=== PATIENT | male | born 1965 | race Caucasian/White ===

== ENCOUNTER 2020-03-06 11:10 | Inpatient (IN) | payer OTHER ==
[2020-03-06 14:11] VITALS: BMI 27.9
[2020-03-06] MEDS ORDERED: NICOTINE POLACRILEX 2 MG GUM BUC PRN (14:32)
[2020-03-06] MEDS ORDERED: MAG HYDROX/AL HYDROX/SIMETH 30 ML UNIT-DOSE CUP PO PRN (14:32)
[2020-03-06] MEDS ORDERED: ACETAMINOPHEN 325 MG TABLET (FP) PO PRN ×2 (14:32)
[2020-03-06] MEDS ORDERED: MAGNESIUM HYDROX 2400MG/30ML ORAL SUSPENSION 30 ML CUP PO PRN (14:32)
[2020-03-06] MEDS ORDERED: ONDANSETRON *ODT* 4 MG TABLET SL ONE (14:32)
[2020-03-06] MEDS ORDERED: BISMUTH SUBSALICYLATE 524 MG/30 ML UD PO PRN (14:32)
[2020-03-06] MEDS ORDERED: METHADONE HCL 10 MG TABLET (FOR DETOX USE ONLY) PO ONE (14:32)
[2020-03-06] MEDS ORDERED: MENTHOL/PHENOL 1 EACH UD MM PRN (14:32)
[2020-03-06] MEDS ORDERED: MAGNESIUM CITRATE 300 ML BOTTLE PO PRN (14:32)
[2020-03-06] MEDS ORDERED: ALBUTEROL SO4 HFA INHALER IH PRN (14:38)
[2020-03-06] MEDS: NICOTINE 21 MG/24 HOURS TOPICAL PATCH TD SCH (15:45)
[2020-03-06] MEDS: hydrOXYzine PAMOATE 25 MG CAPSULE (FP) PO SCH ×2 (18:35→22:14)
[2020-03-06] MEDS: THIAMINE HCL 100 MG TABLET (FP) PO SCH (22:14)
[2020-03-06] MEDS: MELATONIN 5 MG TABLETS PO SCH (22:14)
[2020-03-06] MEDS: cloNIDine HCL 0.1 MG TABLET PO PRN (22:14)
[2020-03-07] MEDS: hydrOXYzine PAMOATE 25 MG CAPSULE (FP) PO SCH ×5 (05:33→22:09)
[2020-03-07] MEDS ORDERED: METHADONE HCL 10 MG TABLET (FOR DETOX USE ONLY) ONE (09:15)
[2020-03-07] MEDS ORDERED: METHADONE HCL 5 MG TABLET (FOR DETOX USE ONLY) ONE (09:15)
[2020-03-07] MEDS ORDERED: METHADONE (DETOX) 20 MG, METHADONE (DETOX) 5 MG PO ONE (10:00)
[2020-03-07] MEDS: PRENATAL VITAMINS W/ FOLIC ACID TABLET (FP) PO SCH (10:33)
[2020-03-07] MEDS: NICOTINE 21 MG/24 HOURS TOPICAL PATCH TD SCH (10:44)
[2020-03-07 10:59] LABS: ALBUMIN 2.7 g/dl (3.4-5.0); BILIRUBIN,TOTAL 0.6 mg/dL (0.2-1); BLOOD UREA NITROGEN 15.4 mg/dL (7-18); POTASSIUM 3.9 mmol/L (3.5-5.1); TOT PROT 7.1 g/dl (6.4-8.2)
[2020-03-07 11:04] LABS: HEMATOCRIT 42.5 % (35.4-49); HEMOGLOBIN 14.1 GM/dL (11.7-16.9); MCHC 33.2 g/dl (32.0-35.9); MEAN CELL VOLUME 87.3 fl (80-96); MEAN PLT VOLUME 8.3 fl (7.5-11.1); PLATELET COUNT 262 K/MM3 (134-434); RBC 4.87 M/mm3 (4.00-5.60); RDW 14.9 % (11.9-15.9); WHITE BLOOD COUNT 6.9 K/mm3 (4.0-10.0)
[2020-03-07] MEDS: cloNIDine HCL 0.1 MG TABLET PO PRN (11:24)
[2020-03-07] MEDS: METHOCARBAMOL 500 MG TABLET PO PRN ×2 (11:24→19:14)
[2020-03-07] MEDS: IBUPROFEN 400 MG TABLET (FP) PO PRN ×2 (11:26→19:14)
[2020-03-07] MEDS: THIAMINE HCL 100 MG TABLET (FP) PO SCH (22:09)
[2020-03-07] MEDS: QUEtiapine FUMARATE 100 MG TABLET (FP) PO SCH (22:10)
[2020-03-07] MEDS: MELATONIN 5 MG TABLETS PO SCH (22:11)
[2020-03-08] MEDS: hydrOXYzine PAMOATE 25 MG CAPSULE (FP) PO SCH ×5 (02:00→22:12)
[2020-03-08] MEDS ORDERED: METHADONE HCL 10 MG TABLET (FOR DETOX USE ONLY) PO ONE ×2 (06:00→10:00)
[2020-03-08] MEDS: PRENATAL VITAMINS W/ FOLIC ACID TABLET (FP) PO SCH (10:57)
[2020-03-08] MEDS: NICOTINE 21 MG/24 HOURS TOPICAL PATCH TD SCH (10:57)
[2020-03-08] MEDS: IBUPROFEN 400 MG TABLET (FP) PO PRN ×2 (11:00→22:13)
[2020-03-08] MEDS: METHOCARBAMOL 500 MG TABLET PO PRN ×2 (12:38→22:13)
[2020-03-08] MEDS: MELATONIN 5 MG TABLETS PO SCH (22:10)
[2020-03-08] MEDS: QUEtiapine FUMARATE 100 MG TABLET (FP) PO SCH (22:12)
[2020-03-08] MEDS: THIAMINE HCL 100 MG TABLET (FP) PO SCH (22:14)
[2020-03-09] MEDS: hydrOXYzine PAMOATE 25 MG CAPSULE (FP) PO SCH ×4 (03:00→20:52)
[2020-03-09] MEDS ORDERED: METHADONE HCL 10 MG TABLET (FOR DETOX USE ONLY) ONE (04:45)
[2020-03-09] MEDS ORDERED: METHADONE HCL 5 MG TABLET (FOR DETOX USE ONLY) ONE (04:45)
[2020-03-09] MEDS ORDERED: METHADONE (DETOX) 10 MG, METHADONE (DETOX) 5 MG PO ONE ×2 (05:00→10:00)
[2020-03-09] MEDS: PRENATAL VITAMINS W/ FOLIC ACID TABLET (FP) PO SCH (10:13)
[2020-03-09] MEDS: NICOTINE 21 MG/24 HOURS TOPICAL PATCH TD SCH (10:14)
[2020-03-09] MEDS: METHOCARBAMOL 500 MG TABLET PO PRN (14:42)
[2020-03-09] MEDS: MELATONIN 5 MG TABLETS PO SCH (22:12)
[2020-03-09] MEDS: THIAMINE HCL 100 MG TABLET (FP) PO SCH (22:12)
[2020-03-09] MEDS: QUEtiapine FUMARATE 100 MG TABLET (FP) PO SCH (22:12)
[2020-03-10] MEDS: hydrOXYzine PAMOATE 25 MG CAPSULE (FP) PO SCH ×4 (03:09→20:55)
[2020-03-10] MEDS ORDERED: METHADONE HCL 10 MG TABLET (FOR DETOX USE ONLY) PO ONE ×2 (06:00→10:00)
[2020-03-10] MEDS: PRENATAL VITAMINS W/ FOLIC ACID TABLET (FP) PO SCH (11:12)
[2020-03-10] MEDS: NICOTINE 21 MG/24 HOURS TOPICAL PATCH TD SCH (11:12)
[2020-03-10] MEDS: MELATONIN 5 MG TABLETS PO SCH (21:59)
[2020-03-10] MEDS: THIAMINE HCL 100 MG TABLET (FP) PO SCH (21:59)
[2020-03-10] MEDS: QUEtiapine FUMARATE 100 MG TABLET (FP) PO SCH (21:59)
[2020-03-11] MEDS: hydrOXYzine PAMOATE 25 MG CAPSULE (FP) PO SCH ×2 (02:15→07:46)
[2020-03-11] MEDS ORDERED: METHADONE HCL 5 MG TABLET (FOR DETOX USE ONLY) PO ONE (06:00)
[2020-03-11 07:40] VITALS: BP 95/58; PULSE 61; TEMP 97.4
== END 2020-03-11 08:48 | disposition home or self-care (01) | DRG 773 ==
LOC: YASAS 11:10 → Y6N 14:53 → Y3N 03-10 15:35
PROVIDERS: ADMIT Allergy & Immunology; ATTEND Allergy & Immunology
PROC: HZ2ZZZZ Detoxification Services for Substance Abuse Treatment (ICD-10-PCS; principal; 2020-03-06)
DX: F11.23 Opioid dependence with withdrawal (principal); F17.210 Nicotine dependence, cigarettes, uncomplicated; F51.05 Insomnia due to other mental disorder; F41.9 Anxiety disorder, unspecified; F32.9 Major depressive disorder, single episode, unspecified; J44.9 Chronic obstructive pulmonary disease, unspecified; Z56.0 Unemployment, unspecified; Z59.0 Homelessness
CPT/HCPCS: 36415; 80053; 85027; 86780; 93005; 93010; J0735; U0003

== ENCOUNTER 2020-05-17 18:29 | Inpatient (IN) | payer OTHER ==
--- NOTE | 2020-05-17 19:38 | PDOC ---
History of Present Illness - General Chief Complaint: Edema Stated Complaint: EDEMA Time Seen by Provider: 05/17/20 19:17 - History of Present Illness Initial Comments: 55 YOM h/o heroin addiction presents with bilateral upper and lower limb edema of one day duration. Patient is a habitual heroin user who presented to [facility] this morning for detox. Upon arrival he was found to have swelling in upper and lower limbs. He was also short of breath. [facility] did not consider him medically fit for admission, he was sent here for subsequent evaluation. He mentions that he has a history of a heart condition for which he was treated with a "water pill" but is uncertain of any specific details. He denies CP, N/V/D, fever or chills. Constitutional: No Weight Change, No Fever, No Chills, No Night Sweats, No Fatigue, No Malaise ENT/Mouth: No Hearing Changes, No Ear Pain, No Nasal Congestion, No Sinus Pain, No Hoarseness, No sore throat, No Rhinorrhea, No Swallowing Difficulty Eyes: No Eye Pain, No Swelling, No Redness, No Foreign Body, No Discharge, No Vision Changes Cardiovascular: No Chest Pain, No SOB, No PND, No Dyspnea on Exertion, No Orthopnea, No Claudication, No Palpitations Respiratory: No Cough, No Sputum, No Wheezing, No Smoke Exposure Gastrointestinal: No Nausea, No Vomiting, No Diarrhea, No Constipation, No Pain, No Heartburn, No Anorexia, No Dysphagia, No Hematochezia, No Melena, No Flatulence, No Jaundice Genitourinary: No Dysmenorrhea, No DUB, No Dyspareunia, No Dysuria, No Urinary Frequency, No Hematuria, No Urinary Incontinence, No Urgency, No Flank Pain, No Urinary Flow Changes, No Hesitancy Musculoskeletal: No Arthralgias, No Myalgias, No Joint Swelling, No Joint Stiffness, No Back Pain, No Neck Pain, No Injury History Skin: No Skin Lesions, No Pruritis, No Hair Changes, No Breast/Skin Changes, No Nipple Discharge Neuro: No Weakness, No Numbness, No Paresthesias, No Loss of Consciousness, No Syncope, No Dizziness, No Headache, No Coordination Changes, No Recent Falls Psych: No Anxiety/Panic, No Depression, No Insomnia, No Personality Changes, No Delusions, No Rumination, No SI/HI/AH/VH, No Social Issues, No Memory Changes, No Violence/Abuse Hx., No Eating Concerns Heme/Lymph: No Bruising, No Bleeding, No Transfusions History, No Lymphadenopathy Endocrine: No Polyuria, No Polydipsia, No Temperature Intolerance Past History - Medical History Allergies/Adverse Reactions: Allergies Allergy/AdvReac Type Severity Reaction Status Date / Time No Known Allergies Allergy Verified 03/06/20 14:06 Home Medications: Ambulatory Orders Quetiapine Fumarate [Seroquel -] 100 mg PO HS 03/06/20 Albuterol Sulfate Inhaler - [Ventolin HFA Inhaler -] 2 puff IH PRN #1 inhaler 03/11/20 Anemia: No Asthma: No Cancer: No Cardiac Disorders: No CVA: No COPD: Yes (no med) CHF: No Dementia: No Diabetes: No GI Disorders: No Disorders: No HTN: No Hypercholesterolemia: No Liver Disease: No Seizures: No Thyroid Disease: No - Psycho-Social/Smoking History Smoking History: Unknown if ever smoked Have you smoked in the past 12 months: Yes Number of Cigarettes Smoked Daily: 10 Cigars Per Day: 0 'Breaking Loose' booklet given: 05/17/20 *Physical Exam - Vital Signs Last Vital Signs Temp Pulse Resp BP Pulse Ox 98 F 65 16 127/83 100 05/17/20 19:02 05/17/20 19:02 05/17/20 19:02 05/17/20 19:02 05/17/20 19:02 - Physical Exam General Appearance: Yes: Nourished, Appropriately Dressed, Mild Distress HEENT: positive: EOMI, JOSE, Normal ENT Inspection, Normal Voice Neck: positive: Trachea midline, Normal Thyroid Respiratory/Chest: positive: Lungs Clear, Normal Breath Sounds, Respiratory Distress Cardiovascular: positive: Regular Rhythm, Regular Rate, S1, S2, Edema Gastrointestinal/Abdominal: positive: Normal Bowel Sounds, Flat, Soft Musculoskeletal: positive: Normal Inspection Extremity: positive: Normal Capillary Refill, Pedal Edema, Swelling Integumentary: positive: Normal Color, Dry, Warm Neurologic: positive: counter weigher II-XII NML intact, Fully Oriented, Alert, Normal Mood/Affect, Normal Response, Motor Strength 5/5 ED Treatment Course - LABORATORY CBC & Chemistry Diagram: 05/17/20 21:00 05/17/20 21:00 Medical Decision Making - Medical Decision Making 55 YOM h/o heroin addiction presents with bilateral upper and lower limb edema of one day duration. Patient is a habitual heroin user who presented to [facility] this morning for detox. Upon arrival he was found to have swelling in upper and lower limbs. He was also short of breath. [facility] did not consider him medically fit for admission, he was sent here for subsequent evaluation. He mentions that he has a history of a heart condition for which he was treated with a "water pill" but is uncertain of specific details. He denies CP, N/V/D, fever or chills. Vitals on arrival wnl. Physical exam revealing bilateral upper and lower extremity edema. dx includes but is not limited to: CHF exacerbation, liver failure, COVID-19 infection, pulmonary hypertension. plan: CBC, CMP, coags, troponin, BNP, CXR, EKG reassess: EKG and labs wnl, CXR suggestive of pulmonary edema. Will admit patient for CHF exacerbation. dispo: admit to medicine. Discharge - Discharge Information Problems reviewed: Yes Clinical Impression/Diagnosis: Edema - Follow up/Referral - Patient Discharge Instructions - Post Discharge Activity
--- NOTE | 2020-05-17 19:46 | PDOC ---
Attending Attestation - Resident Resident Name: Adriel Ga - ED Attending Attestation I have performed the following: I have examined & evaluated the patient, The case was reviewed & discussed with the resident, I agree w/resident's findings & plan - HPI HPI: 05/17/20 21:39 see resident hpi - Physicial Exam PE: 05/17/20 21:40 see resident exam - Medical Decision Making 05/17/20 21:41 55-year-old male with history of polysubstance abuse namely heroin and alcohol complaining of swelling to the lower extremities as well as hands sent from [facility] rehab facility for further evaluation Chest x-ray suggests pulmonary congestion We will plan for admission to medical service for diuresis and further evaluation pending labs Discharge - Discharge Information Problems reviewed: Yes Clinical Impression/Diagnosis: Edema - Follow up/Referral - Patient Discharge Instructions - Post Discharge Activity
[2020-05-17] MEDS ORDERED: FUROSEMIDE 40 MG TABLET (FP) PO ONE (20:05)
[2020-05-17] MEDS ORDERED: chlordiazePOXIDE HCL 25 MG CAPSULE PO ONE (21:00)
[2020-05-17 21:25] LABS: BASO % 0.3 % (0-2.0); HEMATOCRIT 35.1 % (35.4-49); HEMOGLOBIN 11.8 GM/dL (11.7-16.9); LYMPH % 21.2 % (8-40); MCH 28.9 pg (25.7-33.7); MCHC 33.6 g/dl (32.0-35.9); MEAN CELL VOLUME 86.1 fl (80-96); MEAN PLT VOLUME 7.6 fl (7.5-11.1); MONO % 2.4 % (3.8-10.2); NEUT % 71.1 % (42.8-82.8); PLATELET COUNT 376 K/MM3 (134-434); RBC 4.08 M/mm3 (4.00-5.60); RDW 15.5 % (11.9-15.9); WHITE BLOOD COUNT 7.2 K/mm3 (4.0-10.0)
[2020-05-17 21:40] LABS: INR 1.11 (0.83-1.09); PROTHROMBIN TIME (PATIENT) 13.1 SEC (9.7-13.0)
[2020-05-17] MEDS ORDERED: chlordiazePOXIDE HCL 25 MG CAPSULE ONE (21:47)
[2020-05-17 21:57] LABS: ALBUMIN 2.3 g/dl (3.4-5.0); ALK PHOS 53 U/L (45-117); ANION GAP 6 MMOL/L (8-16); BILIRUBIN,TOTAL 0.2 mg/dL (0.2-1); BLOOD UREA NITROGEN 10.5 mg/dL (7-18); CALCIUM 8.5 mg/dL (8.5-10.1); CHLORIDE 104 mmol/L (98-107); CO2 29 mmol/L (21-32); GLUCOSE,RANDOM 98 mg/dL (74-106); N-TERMINAL BNP 224.6 pg/ml (5-125); POTASSIUM 4.4 mmol/L (3.5-5.1); SGOT/AST 20 U/L (15-37); SGPT/ALT 14 U/L (13-61); SODIUM 138 mmol/L (136-145); TOT PROT 7.3 g/dl (6.4-8.2)
--- NOTE | 2020-05-17 23:21 | PN ---
Teaching Attending Note Name of Resident: Ros Caro ATTENDING PHYSICIAN STATEMENT I saw and evaluated the patient. I reviewed the resident's note and discussed the case with the resident. I agree with the resident's findings and plan as documented. SUBJECTIVE: Patient is a 55 year old man with a PMH of COPD, Insomnia, Heroin abuse, Alcohol abuse, anxiety, Depression, ?CHF (was on diuretic) and Tobacco use who presents from [facility] with bilateral upper and lower limb edema of one day duration. Patient is a habitual heroin user who presented to [facility] this morning for detox. Upon arrival he was found to have swelling in upper and lower limbs with SOB. [facility] did not consider him medically fit for admission, and sent him to ER. He mentions that he has a history of a "heart condition" for which he was treated with a "water pill" but could not elaborate. 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 Patient denies chest pain, abdominal pain, headache, palpitations, dizziness, fever, chills, nausea, vomiting, diarrhea, constipation, dysuria, frequency, urgency, melena, hematochezia or hematuria. No sick contacts or recent travels. Family history is unremarkable. OBJECTIVE: Alert Vital Signs Period Temp Pulse Resp BP Sys/Yi Pulse Ox Last 24 Hr 98 F 65 16 127/83 100 HEENT: No Jaundice, eye redness or discharge, PERRLA, EOMI. Normocephalic, atraumatic. External ears are normal and hearing is grossly intact. No nasal discharge. Neck: Supple, nontender. No palpable adenopathy or thyromegaly. No JVD Chest: Good effort. Coarse crackles. Clear to percussion. Heart: Regular. No S3, rub or murmur Abdomen: Not distended, soft, nontender and no HSM. No rebound or guarding. Normal bowel sounds. Ext: Peripheral pulses intact. Anasarca - most marked in legs and hands. Skin: Warm and dry. No petechiae, rash or ecchymosis. Neuro: Alert. Oriented x3. CN 2-12 grossly intact. Sensation grossly intact in all four extremities and DTR are symmetric. Psych: Appropriate mood and affect. Good insight. Home Medications Medication Instructions Recorded Quetiapine Fumarate [Seroquel -] 100 mg PO HS 03/06/20 Albuterol Sulfate Inhaler - 2 puff IH PRN #1 inhaler 03/11/20 [Ventolin HFA Inhaler -] Abnormal Lab Results 05/17/20 05/17/20 05/17/20 21:00 21:00 21:00 Hct 35.1 L D Monocytes % 2.4 L Eosinophils % 5.0 H PT with INR 13.10 H INR 1.11 H Anion Gap 6 L B-Natriuretic Peptide 224.6 H Albumin 2.3 L Current Medications Generic Name Dose Route Start Last Admin Trade Name Pankaj PRN Reason Stop Dose Admin Furosemide 40 mg 05/18/20 10:00 Lasix Injection - IVPUSH DAILY [facility] Heparin Sodium (Porcine) 5,000 unit 05/18/20 06:00 Heparin - SQ TID YUDY ASSESSMENT AND PLAN: 1. CHF exacerbation/?Nephrotic syndrome/?Interstitial lung disease - May have CHF likely precipitated by nonadherence to CHF regimen and/or drug use. 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 CXR shows cardiomegaly with diffuse bilateral interstitial infiltrates - may have chronic interstitial lung disease caused by heroin and/or talc with which the heroin is cut. Oxygen saturation was 100 % on room air. EKG shows NSR at 75/minute and QTc [address]-T wave changes. Initial troponin is negative. Will admit to telemetry, get urinalysis, urine protein/creatinine ratio, lipid profile and kidney sonogram. Treat with IV Lasix to achieve adequate diuresis, get ECHO, restrict dietary salt intake, monitor renal function, monitor and replete electrolytes, get daily weight and consult Cardiology/Pulmonary. Will continue comprehensive care for all of patients comorbid conditions including Seroquel for depression. 2. Anemia Cause unclear. Will do basic anemia work up including serial stool guaiacs, reticulocyte count and iron studies. 3. Alcohol/Heroin abuse Will monitor closely for drug withdrawal, implement [facility] Librium alcohol withdrawal protocol and do neurochecks. Implement seizure, fall and aspiration precautions. Treat with IV Banana bag, thiamine and folic acid. Monitor and replete electrolytes (Ca,Mg,K,P). Counseled patient about abstaining from alcohol/illicit drugs. Will consult ehs specialist and refer to alcohol/drug detox upon discharge. 4. Hypoalbuminemia - Possibly due to combined effects of malnutrition and inflammation associated with comorbid conditions. Will ensure adequate dietary protein intake and also consult charter representative. Urinalysis pending. 5. Tobacco Use Counseled on risks associated with tobacco use. We will provide patient all the necessary assistance to facilitate smoking cessation and prescribe Nicotine patch. 6. DVT prophylaxis - Lovenox 40 mg SQ q 24 hours. 7. Advance directives - Full code
[2020-05-18] MEDS ORDERED: FUROSEMIDE 40 MG/4 ML INJECTABLE VIAL IVPUSH ONE (02:23)
[2020-05-18] MEDS ORDERED: FUROSEMIDE 40 MG/4 ML INJECTABLE VIAL ONE ×2 (02:50→10:01)
--- NOTE | 2020-05-18 03:42 | HP ---
CHIEF COMPLAINT: UE & LE edema PCP: none HISTORY OF PRESENT ILLNESS: Pt is a 55 yo M with PMH of COPD, insomnia, alcohol use disorder, heroine use disorder, depression, and questionable CHF hx arriving with diffuse UE & LE edema that had developed gradually over the last 2 weeks. Pt has been more SOB over the last 2 years but has not been SOB above his baseline over the last two years recently. He presented to [facility] this morning for detox. Upon arriving, found to have bilateral upper and lower limb edema; was considered not medically fit for admission to [facility]. Pt also reports orthopnea and having to sleep at an angle for unknown period of time. Reports a similar episode about 3 years ago for which he went to [facility]; pt reports that kidneys and cardiology worked up but is a poor historian regarding course; reports getting "water pill" for "possible heart condition" or "kidney condition." Pt reports generalized myalgias today. Pt denies chest pain, nausea, vomiting, constipation, diarrhea, fevers, or chills. Denies changes in urinary habits as well. No night sweats or recent weight loss. No tremors, auditory/visual/tactile hallucinations, or increased agitation. 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 Family hx - none Social History: Pt is a former construction project assistant; [facility] Smokin.5 ppd x 1 year Alcohol: 4-5 24 oz beers daily; last drink 2 days ago Drugs: Heroine 2 bundles daily - snorting/sniffing; not IV Allergies No Known Allergies Allergy (Verified 03/06/20 14:06) HOME MEDICATIONS: Home Medications Medication Instructions Recorded Quetiapine Fumarate [Seroquel -] 100 mg PO HS 03/06/20 Albuterol Sulfate Inhaler - 2 puff IH PRN #1 inhaler 03/11/20 [Ventolin HFA Inhaler -] REVIEW OF SYSTEMS as per HPI PHYSICAL EXAMINATION Vital Signs - 24 hr 05/17/20 19:02 Temperature 98 F Pulse Rate 65 Respiratory 16 Rate Blood Pressure 127/83 O2 Sat by Pulse 100 Oximetry (%) GENERAL: Awake, alert, and fully oriented, mildly anxious HEAD: Normal with no signs of trauma. EYES: Pupils equal, round and reactive to light, extraocular movements intact, sclera anicteric, conjunctiva clear. EARS, NOSE, THROAT: oropharynx clear without exudates. Moist mucous membranes. Mild tongue fasciculations appreciated. NECK: Normal range of motion, supple without lymphadenopathy. LUNGS: Crackles appreciated bilaterally from bases to midway through lung haddad. No wheezes. No accessory muscle use. HEART: Regular rate and rhythm, normal S1 and S2 without murmur, rub or gallop. ABDOMEN: Soft, nontender, not distended, normoactive bowel sounds. MUSCULOSKELETAL: Moving all extremities equally and spontaneously. UPPER EXTREMITIES: 2+ pulses, warm, well-perfused. 2+ pitting edema of dorsum bilateral hands; left index finger amputated at DIP LOWER EXTREMITIES: 2+ pulses, warm, well-perfused. 2+ to 3+ pitting edema below the knee. NEUROLOGICAL: Cranial nerves II-XII intact. Normal speech. Normal gait. PSYCHIATRIC: Cooperative. Good eye contact. Appropriate mood and affect. SKIN: Warm, dry, normal turgor, no rashes or lesions noted, normal capillary refill. Laboratory Results - last 24 hr 05/17/20 05/17/20 05/17/20 21:00 21:00 21:00 WBC 7.2 RBC 4.08 Hgb 11.8 Hct 35.1 L D MCV 86.1 MCH 28.9 MCHC 33.6 RDW 15.5 Plt Count 376 D MPV 7.6 Absolute Neuts (auto) 5.1 Neutrophils % 71.1 Lymphocytes % 21.2 Monocytes % 2.4 L Eosinophils % 5.0 H Basophils % 0.3 Nucleated RBC % 0 PT with INR 13.10 H INR 1.11 H PTT (Actin FS) 32.0 Sodium 138 Potassium 4.4 Chloride 104 Carbon Dioxide 29 Anion Gap 6 L BUN 10.5 Creatinine 1.0 Est GFR (CKD-EPI)AfAm 97.77 Est GFR (CKD-EPI)NonAf 84.35 Random Glucose 98 Calcium 8.5 Total Bilirubin 0.2 AST 20 ALT 14 Alkaline Phosphatase 53 Creatine Kinase 115 Troponin I < 0.02 B-Natriuretic Peptide 224.6 H Total Protein 7.3 Albumin 2.3 L Alcohol, Quantitative 05/17/20 21:00 WBC RBC Hgb Hct MCV MCH MCHC RDW Plt Count MPV Absolute Neuts (auto) Neutrophils % Lymphocytes % Monocytes % Eosinophils % Basophils % Nucleated RBC % PT with INR INR PTT (Actin FS) Sodium Potassium Chloride Carbon Dioxide Anion Gap BUN Creatinine Est GFR (CKD-EPI)AfAm Est GFR (CKD-EPI)NonAf Random Glucose Calcium Total Bilirubin AST ALT Alkaline Phosphatase Creatine Kinase Troponin I B-Natriuretic Peptide Total Protein Albumin Alcohol, Quantitative < 3 ASSESSMENT/PLAN: Pt is a 55 yo M with PMH of COPD, insomnia, alcohol use disorder, heroine use disorder, depression, and questionable CHF hx arriving with diffuse UE & LE edema x 2 weeks. Pt being admitted for evaluation and treatment of possible nephrotic syndrome vs CHF exacerbation. #Upper + Lower Extremity Edema etiology unknown (Heroin induced nephrotic syndrome vs CHF exacerbation) BNP mildly elevated; no previous ECHO in chart - f/u UA; urine protein/creatinine - f/u lipid profle - renal sonogram - monitor renal function - consider nephro consult based on worup - cardiology consulted; can consider ECHO as per cardiology discretion; appreciate recs - Lasix IV 40 daily - Strict Is/Os - Daily weights #Possible Interstitial Lung Disease CXR shows cardiomegaly with diffuse bilateral interstitial infiltrates Chronic interstitial lung disease caused by heroin and/or talc with which the heroin is cut saturating 100% on RA - Pulm consulted; appreciate recs #Anemia (Hct dropped to 35.1; Hb stable) no recent hx of bleeding, per pt - iron studies ordered; reticulocytes; stool for occult blood #Alcohol Abuse/Heroin abuse CIWA 2; COWS 5 - no in acute alcohol withdrawal - can give librium if worsening CIWA - retail account specialist consulted #Hypoalbuminemia (Nephrotic syndrome vs malnutrition) - f/u UA - trouble clerk consulted #Nicotine Dependence - nicotine patch #DVT PPx heparin 5000 sq tid for now d/t concern of renal function; can switch to lovenox per day team discretion #FEN - F - no IVF for now - E - monitor; replete lytes prn - N - sodium restricted diet #Dispo - admit to med-surg Full code Family Medical History Family History: As Documented Visit type - Emergency Visit Emergency Visit: Yes ED Registration Date: 05/17/20 Care time: The patient presented to the Emergency Department on the above date and was hospitalized for further evaluation of their emergent condition. - New Patient This patient is new to me today: Yes Date on this admission: 05/18/20 - Critical Care Critical Care patient: No ATTENDING PHYSICIAN STATEMENT I saw and evaluated the patient. I reviewed the resident's note and discussed the case with the resident. I agree with the resident's findings and plan as documented. SUBJECTIVE: OBJECTIVE: ASSESSMENT AND PLAN:
[2020-05-18] MEDS ORDERED: HEPARIN NA (PORCINE) 5,000 UNITS/ML 1ML VIAL ONE (05:58)
[2020-05-18] MEDS ORDERED: HEPARIN NA (PORCINE) 5,000 UNITS/ML 1ML VIAL SQ SCH (06:00)
--- NOTE | 2020-05-18 09:08 | EKG ---
Test Reason : Blood Pressure : / mmHG Vent. Rate : 075 BPM Atrial Rate : 075 BPM P-R Int : 150 ms QRS Dur : 086 ms QT Int : 380 ms P-R-T Axes : -05 -15 034 degrees QTc Int : 424 ms NORMAL SINUS RHYTHM NORMAL ECG WHEN COMPARED WITH ECG OF 06-MAR-2020 13:21, NO SIGNIFICANT CHANGE WAS FOUND Confirmed by Jamie Brooks MD ([id number]) on 05/18/2020 9:08:05 AM Referred By: Confirmed By:Jamie Brooks MD
[2020-05-18 09:29] LABS: PH,URINE 7.5 (5.0-8.0); URINE APPEARANCE CLEAR; URINE BILIRUBIN NEGATIVE (NEGATIVE); URINE COLOR YELLOW; URINE GLUCOSE (UA) NEGATIVE (NEGATIVE); URINE KETONE NEGATIVE (NEGATIVE); URINE LEUK ESTERASE NEGATIVE (NEGATIVE); URINE NITRITE NEGATIVE (NEGATIVE); URINE PROTEIN NEGATIVE (NEGATIVE); URINE UROBILINOGEN 0.2 mg/dL (0.2-1.0)
[2020-05-18] MEDS ORDERED: ENOXAPARIN NA (PORCINE) 40 MG/0.4 ML DISP.SYRIN SQ SCH (10:00)
[2020-05-18] MEDS ORDERED: METHADONE HCL 5 MG TABLET PO ONE (10:25)
[2020-05-18] MEDS ORDERED: LOPERAMIDE HCL 2 MG CAPSULE PO PRN (10:27)
--- NOTE | 2020-05-18 10:34 | CON.CARD ---
Consult Consult Specialty:: Cardiology Referred by:: Hospitalist Reason for Consultation:: Cardiac evaluation - History of Present Illness Chief Complaint: Shortness of breath and LE edema History of Present Illness: Patient is a 55 year old male with underlying history of COPD, substance abuse with ETOH and Heroine who presented to ED with LE edema and shortness of breath. He went for Detox at [facility] but due to above issues, he was sent to ED for further evaluation. He states that he is followed at [facility] and takes diuretic. He reports generalized muscle aches. He denies chest pain or palpitations. He denies nausea, vomiting, diarrhea or abdominal pain. He denies headache or lightheadedness. No fever or chills. - History Source History Provided By: Patient, Medical Record Limitations to Obtaining History: Poor Historian - Past Medical History Cardio/Vascular: Yes: CHF Pulmonary: Yes: COPD Psych: Yes: Anxiety, Depression (insomnia) - Past Surgical History Past Surgical History: Yes: None - Alcohol/Substance Use Hx Alcohol Use: Yes History of Substance Use: reports: Heroin - Smoking History Smoking history: Current every day smoker Have you smoked in the past 12 months: Yes Aproximately how many cigarettes per day: 10 Home Medications - Allergies Allergies/Adverse Reactions: Allergies Allergy/AdvReac Type Severity Reaction Status Date / Time No Known Allergies Allergy Verified 05/18/20 08:20 - Home Medications Home Medications: Ambulatory Orders Quetiapine Fumarate [Seroquel -] 100 mg PO HS 03/06/20 Albuterol Sulfate Inhaler - [Ventolin HFA Inhaler -] 2 puff IH PRN #1 inhaler 03/11/20 Family Medical History Family History: Denies Review of Systems - Review of Systems Constitutional: reports: Weakness. denies: Chills, Fever Cardiovascular: reports: Shortness of Breath. denies: Chest Pain, Palpitations Respiratory: reports: SOB. denies: Cough, Hemoptysis, Orthopnea, PND, Wheezing Gastrointestinal: denies: Abdominal Pain, Constipation, Diarrhea, Melena, Nausea, Rectal Bleeding, Vomiting Genitourinary: denies: Dysuria, Hematuria Neurological: denies: Dizziness, Headache, Seizure, Syncope Vital Signs: Vital Signs Temperature 97.4 F L 05/18/20 10:06 Pulse Rate 82 05/18/20 10:06 Respiratory Rate 18 05/18/20 10:06 Blood Pressure 114/64 05/18/20 10:06 O2 Sat by Pulse Oximetry (%) 98 05/18/20 10:06 Neck: Yes: Supple Respiratory: Yes: Rales Gastrointestinal: Yes: Normal Bowel Sounds, Soft. No: Tenderness Cardiovascular: Yes: Regular Rate and Rhythm JVD: No PMI: Non-Displaced Heart Sounds: Yes: S1, S2 Edema: Yes Edema: LLE: 1+, RLE: 1+ - Other Data Labs, Other Data: CBC, BMP 05/17/20 21:00 05/17/20 21:00 INR, PTT INR 1.11 (0.83-1.09) H 05/17/20 21:00 Troponin, BNP 05/17/20 21:00 Troponin I < 0.02 B-Natriuretic Peptide 224.6 H Laboratory Results - last 24 hr 05/17/20 05/17/20 05/17/20 21:00 21:00 21:00 WBC 7.2 RBC 4.08 Hgb 11.8 Hct 35.1 L D MCV 86.1 MCH 28.9 MCHC 33.6 RDW 15.5 Plt Count 376 D MPV 7.6 Absolute Neuts (auto) 5.1 Neutrophils % 71.1 Lymphocytes % 21.2 Monocytes % 2.4 L Eosinophils % 5.0 H Basophils % 0.3 Nucleated RBC % 0 PT with INR 13.10 H INR 1.11 H PTT (Actin FS) 32.0 Sodium 138 Potassium 4.4 Chloride 104 Carbon Dioxide 29 Anion Gap 6 L BUN 10.5 Creatinine 1.0 Est GFR (CKD-EPI)AfAm 97.77 Est GFR (CKD-EPI)NonAf 84.35 Random Glucose 98 Calcium 8.5 Total Bilirubin 0.2 AST 20 ALT 14 Alkaline Phosphatase 53 Creatine Kinase 115 Troponin I < 0.02 B-Natriuretic Peptide 224.6 H Total Protein 7.3 Albumin 2.3 L Urine Color Urine Appearance Urine pH Ur Specific [place] Urine Protein Urine Glucose (UA) Urine Ketones Urine Blood Urine Nitrite Urine Bilirubin Urine Urobilinogen Ur Leukocyte Esterase Alcohol, Quantitative Normal sinus rhythm with normal ECG Echo: Pending Imaging - Results Chest X-ray: Report Reviewed (Diffuse bilateral infiltrates) EKG: Report Reviewed Problem List - Problems (1) Pedal edema Code(s): R60.0 - LOCALIZED EDEMA (2) CHF (congestive heart failure) Code(s): I50.9 - HEART FAILURE, UNSPECIFIED (3) Alcohol dependence with withdrawal, uncomplicated Code(s): F10.230 - ALCOHOL DEPENDENCE WITH WITHDRAWAL, UNCOMPLICATED (4) Edema Code(s): R60.9 - EDEMA, UNSPECIFIED (5) Opioid dependence with withdrawal Code(s): F11.23 - OPIOID DEPENDENCE WITH WITHDRAWAL (6) COPD (chronic obstructive pulmonary disease) Code(s): J44.9 - CHRONIC OBSTRUCTIVE PULMONARY DISEASE, UNSPECIFIED (7) Shortness of breath Code(s): R06.02 - SHORTNESS OF BREATH Assessment/Plan 1. Clinical presentation suggests CHF, acute on chronic LV systolic vs diastolic or combined heart failure 2. Substance abuse with ETOH and Heroine 3. COPD PLAN: 1. Echocardiography to assess LV/RV and valvular function 2. Diuretics with Lasix 40 mg IV QD and monitor I/Os, renal function and electrolytes 3. Detox Further plans are to follow Inocencio Smyth MD
[2020-05-18] MEDS: FUROSEMIDE 40 MG/4 ML INJECTABLE VIAL IVPUSH SCH (10:36)
[2020-05-18] MEDS: NICOTINE 14 MG/24 HOURS TOPICAL PATCH TD SCH (10:36)
[2020-05-18] MEDS ORDERED: METHADONE HCL 5 MG TABLET ONE (11:07)
[2020-05-18] MEDS ORDERED: ENOXAPARIN NA (PORCINE) 40 MG/0.4 ML DISP.SYRIN SQ ONE (13:29)
[2020-05-18] MEDS: ENOXAPARIN NA (PORCINE) 40 MG/0.4 ML DISP.SYRIN SQ SCH (13:32)
--- NOTE | 2020-05-18 13:40 | CON.PULM ---
Consult Consult Specialty:: PULM/CCM Referred by:: Hospitalist Reason for Consultation:: SOB - History of Present Illness Chief Complaint: SOB History of Present Illness: 55 M, COPD due to smoking history, insomnia, alcohol abuser, heroine abuse, depression, and possible history of CHF. Admitted via the ER due to bilateral LE edema and SOB that has progressed over the past 2 weeks. He denies exposure to COVID19. Denies fever or chills. No hemoptysis or night sweats. He reports previous cardiac and kidney evaluations in [facility] but details are not clear. CXR: Bilateral diffuse congestive changes : No previous imaging available for comparison. - History Source History Provided By: Patient Limitations to Obtaining History: Poor Historian - Past Medical History Cardio/Vascular: Yes: CHF Pulmonary: Yes: Bronchitis, COPD, Pneumonia. No: Asthma, Cancer, O2 Dependent, Previously Intubated, Pulmonary Embolus, Pulmonary Fibrosis, Sleep Apnea Psych: Yes: Anxiety, Depression (insomnia) - Past Surgical History Past Surgical History: Yes: None - Alcohol/Substance Use Hx Alcohol Use: Yes History of Substance Use: reports: Heroin - Smoking History Smoking history: Current every day smoker Have you smoked in the past 12 months: Yes Aproximately how many cigarettes per day: 10 Home Medications - Allergies Allergies/Adverse Reactions: Allergies Allergy/AdvReac Type Severity Reaction Status Date / Time No Known Allergies Allergy Verified 05/18/20 08:20 - Home Medications Home Medications: Ambulatory Orders Quetiapine Fumarate [Seroquel -] 100 mg PO HS 03/06/20 Albuterol Sulfate Inhaler - [Ventolin HFA Inhaler -] 2 puff IH PRN #1 inhaler 03/11/20 Family Medical History Family History: Denies Review of Systems - Review of Systems Constitutional: reports: Malaise. denies: Chills, Fever, Night Sweats, Unintentional Wgt. Loss Eyes: reports: No Symptoms HENT: reports: No Symptoms Neck: reports: No Symptoms Cardiovascular: reports: Edema, Shortness of Breath. denies: Chest Pain, Palpitations Respiratory: reports: Cough, Orthopnea, PND, SOB, SOB on Exertion. denies: Hemoptysis, Snoring, Wheezing Gastrointestinal: reports: No Symptoms Genitourinary: reports: No Symptoms Breasts: reports: No Symptoms Reported Musculoskeletal: reports: Back Pain Integumentary: reports: Change in Color Neurological: reports: No Symptoms Endocrine: reports: No Symptoms Hematology/Lymphatic: reports: No Symptoms Psychiatric: reports: Altered Sleep Pattern, Depression. denies: Hallucinations Physical Exam Vital Sings: Vital Signs Temperature 97.4 F L 05/18/20 10:06 Pulse Rate 82 05/18/20 10:06 Respiratory Rate 18 05/18/20 12:48 Blood Pressure 114/64 05/18/20 10:06 O2 Sat by Pulse Oximetry (%) 98 05/18/20 12:48 Constitutional: Yes: No Distress, Calm Eyes: Yes: Conjunctiva Clear, EOM Intact HENT: Yes: Atraumatic, Normocephalic Neck: Yes: Supple, Trachea Midline Cardiovascular: Yes: Regular Rate and Rhythm Respiratory: Yes: Diminished, Rales, Rhonchi, SOB, SOB on Exertion. No: Accessory Muscle Use, Stridor, Tachypnea, Wheezes ...Inspection: Yes: WNL ...Clubbing: No Gastrointestinal: Yes: Normal Bowel Sounds, Soft Renal/: Yes: WNL Breast(s): Yes: Nipple Inversion Musculoskeletal: Yes: WNL Extremities: Yes: WNL Edema: Yes Peripheral Pulses WNL: Yes Integumentary: Yes: WNL Neurological: Yes: WNL, Alert, Oriented ...Motor Strength: WNL Psychiatric: Yes: WNL, Alert, Oriented Labs: CBC, BMP 05/17/20 21:00 05/17/20 21:00 Imaging - Results Chest X-ray: Report Reviewed, Image Reviewed Problem List - Problems (1) Alcohol dependence with withdrawal, uncomplicated Code(s): F10.230 - ALCOHOL DEPENDENCE WITH WITHDRAWAL, UNCOMPLICATED (2) CHF (congestive heart failure) Code(s): I50.9 - HEART FAILURE, UNSPECIFIED (3) Edema Code(s): R60.9 - EDEMA, UNSPECIFIED (4) Pedal edema Code(s): R60.0 - LOCALIZED EDEMA (5) Shortness of breath Code(s): R06.02 - SHORTNESS OF BREATH (6) Insomnia secondary to depression with anxiety Code(s): F51.05 - INSOMNIA DUE TO OTHER MENTAL DISORDER; F41.8 - OTHER SPECIFIED ANXIETY DISORDERS (7) COPD (chronic obstructive pulmonary disease) Code(s): J44.9 - CHRONIC OBSTRUCTIVE PULMONARY DISEASE, UNSPECIFIED (8) Insomnia Code(s): G47.00 - INSOMNIA, UNSPECIFIED (9) Nicotine dependence Code(s): F17.200 - NICOTINE DEPENDENCE, UNSPECIFIED, UNCOMPLICATED Assessment/Plan PLAN: Lasix Daily weights ECHO Follow I & O COVID19 testing No smoking or illicit substance use was discussed Outpatient PFTs Sleep screen Would confirm HIV & Hepatitis status Will follow Thank you. Dr Dacosta SILVIO Screen - SILVIO History Previously diagnosed with Sleep Apnea: No If Yes, currently using CPAP to treat your SILVIO: No - SNORING Do you snore loudly (enough to be heard thru closed doors)?: No - TIRED Do you often feel tired, fatigued, or sleepy during daytime?: Yes - OBSERVED Has anyone observed you stop breathing during your sleep?: No - BLOOD PRESSURE Do you have or are being treated for high blood pressure?: Yes - BMI Answer Y if weight exceeds amount listed for your height: No .: HEIGHT & WEIGHT (lbs): 4'10" 167lbs; 4'" 175 lbs; 5'0" 179lbs;. 5'1" 185lbs; 5'2" 191lbs; 5'3" 197lbs;. 5'4" 204lbs; 5'5" 210lbs; 5'6" 216lbs;. 5'7" 223lbs; 5'8" 230lbs; 5'9" 237lbs;. 5'10" 2 43lbs; 5'11" 250lbs; 6' 258lbs;. 6'1" 265lbs; 6'2" 272lbs; 6'3" 279lbs;. 6'4" 287lbs; 6'5" 295lbs - AGE Is your age over 50 yrs old?: Yes - NECK CIRCUMFERENCE Neck Circumference 40cm: No - GENDER Male: Yes - SCORE Total Score: 4 Score Interpretation: Intermediate Risk of SILVIO .: Interpretation: Score 0-2: Low Risk SILVIO. Score 3-4: Intermediate Risk SILVIO. Score 5-8: High Risk SILVIO
--- NOTE | 2020-05-18 15:58 | PN ---
Teaching Attending Note Name of Resident: Vickey Atkinson ATTENDING PHYSICIAN STATEMENT I saw and evaluated the patient. I reviewed the resident's note and discussed the case with the resident. I agree with the resident's findings and plan as documented. SUBJECTIVE: Patient reports that he went to [facility] to get help for her heroin withdrawal He states he does not want suboxone, and would like to detox to methadone OBJECTIVE: Vital Signs Period Temp Pulse Resp BP Sys/Yi Pulse Ox Last 24 Hr 97.4 F-98.6 F 65-83 16-19 105-127/64-83 98-100 As per resident note ASSESSMENT AND PLAN: 55 y/o M with pmh as noted Substance abuse hx who presents from detox with lower extremity edema. LE Edema: functional vs. renal etiology vs. cardiac Await 2D echo Less likely renal etiology given that patient edema is isolated to b/l LE Can be 2/2 underlying vascular disease given pulmonary and renal findings, however renal findings based on UA not suggesting Nephritic syndrome Pulmonary infiltrates on CXR Await Pulm recs Can be 2/2 substance abuse leading to fibrosis vs. underlying vascular disorder. outpatient workup with PFTs Check HIV Rest of plan as noted
--- NOTE | 2020-05-18 17:23 | PN ---
Physical Exam: SUBJECTIVE: Patient seen and examined at bedside. Patient appears agitated during interview. Patient endorses swelling of his upper extremity has gotten better. OBJECTIVE: Vital Signs Period Temp Pulse Resp BP Sys/Yi Pulse Ox Last 24 Hr 97.4 F-99.4 F 65-83 16-19 105-127/64-83 96-100 GENERAL: The patient is awake, alert, and fully oriented, in no acute distress. LUNGS: CRACKLES HEART BILATERAL BASES HEART: Regular rate and rhythm, S1, S2 without murmur, rub or gallop. ABDOMEN: Soft, nontender, nondistended, normoactive bowel sounds, no guarding, no rebound, no hepatosplenomegaly, no masses. EXTREMITIES: 2+ pulses, warm, well-perfused, 3+ EDEMA BILATERALLY TO MID TIBIA Laboratory Results - last 24 hr 05/17/20 05/17/20 05/17/20 21:00 21:00 21:00 WBC 7.2 RBC 4.08 Hgb 11.8 Hct 35.1 L D MCV 86.1 MCH 28.9 MCHC 33.6 RDW 15.5 Plt Count 376 D MPV 7.6 Absolute Neuts (auto) 5.1 Neutrophils % 71.1 Lymphocytes % 21.2 Monocytes % 2.4 L Eosinophils % 5.0 H Basophils % 0.3 Nucleated RBC % 0 PT with INR 13.10 H INR 1.11 H PTT (Actin FS) 32.0 Sodium 138 Potassium 4.4 Chloride 104 Carbon Dioxide 29 Anion Gap 6 L BUN 10.5 Creatinine 1.0 Est GFR (CKD-EPI)AfAm 97.77 Est GFR (CKD-EPI)NonAf 84.35 Random Glucose 98 Calcium 8.5 Total Bilirubin 0.2 AST 20 ALT 14 Alkaline Phosphatase 53 Creatine Kinase 115 Troponin I < 0.02 B-Natriuretic Peptide 224.6 H Total Protein 7.3 Albumin 2.3 L Urine Color Urine Appearance Urine pH Ur Specific [place] Urine Protein Urine Glucose (UA) Urine Ketones Urine Blood Urine Nitrite Urine Bilirubin Urine Urobilinogen Ur Leukocyte Esterase Ur Random Creatinine U Random Total Protein Protein/Creatinin Ratio Alcohol, Quantitative 05/17/20 05/18/20 05/18/20 21:00 06:20 10:00 WBC RBC Hgb Hct MCV MCH MCHC RDW Plt Count MPV Absolute Neuts (auto) Neutrophils % Lymphocytes % Monocytes % Eosinophils % Basophils % Nucleated RBC % PT with INR INR PTT (Actin FS) Sodium Potassium Chloride Carbon Dioxide Anion Gap BUN Creatinine Est GFR (CKD-EPI)AfAm Est GFR (CKD-EPI)NonAf Random Glucose Calcium Total Bilirubin AST ALT Alkaline Phosphatase Creatine Kinase Troponin I B-Natriuretic Peptide Total Protein Albumin Urine Color Yellow Urine Appearance Clear Urine pH 7.5 Ur Specific [place] 1.006 L Urine Protein Negative Urine Glucose (UA) Negative Urine Ketones Negative Urine Blood Negative Urine Nitrite Negative Urine Bilirubin Negative Urine Urobilinogen 0.2 Ur Leukocyte Esterase Negative Ur Random Creatinine 14.0 L U Random Total Protein < 5.0 Protein/Creatinin Ratio 0.4 Alcohol, Quantitative < 3 Active Medications Generic Name Dose Route Start Last Admin Trade Name Freq PRN Reason Stop Dose Admin Enoxaparin Sodium 40 mg 05/18/20 13:00 05/18/20 13:32 Lovenox - SQ 40 mg DAILY YUDY Administration Furosemide 40 mg 05/18/20 10:00 05/18/20 10:36 Lasix Injection - IVPUSH 40 mg DAILY YUDY Administration Loperamide HCl 2 mg 05/18/20 10:27 Imodium - PO Q8H PRN DIARRHEA Methadone HCl 15 mg 05/19/20 10:00 Dolophine - PO 05/19/20 10:01 ONCE ONE Methadone HCl 10 mg 05/20/20 10:00 Dolophine - PO 05/20/20 10:01 ONCE ONE Methadone HCl 5 mg 05/21/20 06:00 Dolophine - PO 05/21/20 06:01 ONCE ONE Nicotine 14 mg 05/18/20 10:00 05/18/20 10:36 Nicoderm Patch - TD Not Given DAILY YUDY ASSESSMENT/PLAN: Jesús is a 55M w a history of COPD, Insomnia, Heroin abuse, Alcohol abuse, anxiety, Depression, possible CHF (was on diuretic) and Tobacco use. While being admitted into [facility] for heroin detox patient was found to have bilateral UE and LE edema and the patient was sent to the ED. #possible CHF exacerbation - bilateral crackles on LL bases - CXR shows cardiomegaly with diffuse bilateral interstitial infiltrates - Patient endorses snorting heroin - possible cause of interstitial lung disease - ECHO ordered - Lasix 40mg IV BID - monitor bun/cr - Cardiology on board (Dr. Smyth) appreciate recommendations - Pulmonology on board (Dr. Dacosta) appreciate the recommendations - Daily weights - I/O's - restrict dietary salt intake - Checking HIV/HAV/HBV/HCV panel #Heroin/alcohol withdrawal - librium protocol - fall and aspiration precautions - banana bag - methadone taper - imodium for diarrhea - Addition medicine on board (Dr. Pérez) Appreciate the recommendations - urinary toxicology ordered #Hypoalbuminemia - malnutrition - drug use and alcohol use impair absorption of nutrients - folate/thiamine levels - Motorcycle Assembler on board appreciate the recommendations #COVID 19 - pending Visit type - Emergency Visit Emergency Visit: Yes ED Registration Date: 05/17/20 Care time: The patient presented to the Emergency Department on the above date and was hospitalized for further evaluation of their emergent condition. - New Patient This patient is new to me today: Yes Date on this admission: 05/18/20 - Critical Care Critical Care patient: No - Discharge Referral Referred to [facility] Med P.C.: No ATTENDING PHYSICIAN STATEMENT I saw and evaluated the patient. I reviewed the resident's note and discussed the case with the resident. I agree with the resident's findings and plan as documented. SUBJECTIVE: OBJECTIVE: ASSESSMENT AND PLAN:
[2020-05-18] MEDS ORDERED: PNEUMOC 13-VAL CONJ-DIP CRM/PF 0.5 ML DISP.SYRIN IM ONE (20:44)
[2020-05-18] MEDS ORDERED: QUEtiapine FUMARATE 50 MG TABLET PO ONE (22:15)
[2020-05-19 07:07] LABS: HEMATOCRIT 39.1 % (35.4-49); HEMOGLOBIN 12.9 GM/dL (11.7-16.9); MCHC 32.9 g/dl (32.0-35.9); MEAN PLT VOLUME 7.4 fl (7.5-11.1); PLATELET COUNT 389 K/MM3 (134-434); RDW 14.7 % (11.9-15.9); WHITE BLOOD COUNT 8.4 K/mm3 (4.0-10.0)
[2020-05-19 07:19] LABS: INR 1.17 (0.83-1.09); PROTHROMBIN TIME (PATIENT) 13.8 SEC (9.7-13.0)
[2020-05-19 07:30] LABS: ALBUMIN 2.5 g/dl (3.4-5.0); BILIRUBIN,TOTAL 0.8 mg/dL (0.2-1); BLOOD UREA NITROGEN 13.8 mg/dL (7-18); CALCIUM 8.9 mg/dL (8.5-10.1); MAGNESIUM 1.8 mg/dL (1.8-2.4); POTASSIUM 3.7 mmol/L (3.5-5.1); TOT PROT 7.7 g/dl (6.4-8.2)
[2020-05-19] MEDS ORDERED: SERTRALINE HCL 25 MG TABLET (FP) PO SCH (10:00)
[2020-05-19] MEDS ORDERED: METHADONE HCL 5 MG TABLET PO ONE (10:00)
[2020-05-19] MEDS: ENOXAPARIN NA (PORCINE) 40 MG/0.4 ML DISP.SYRIN SQ SCH (10:05)
[2020-05-19] MEDS: NICOTINE 14 MG/24 HOURS TOPICAL PATCH TD SCH (10:05)
--- NOTE | 2020-05-19 10:11 | PN ---
Progress Note, Physician History of Present Illness: LE edema and shortness of breath resolved with diuresis. - Current Medication List Current Medications: Active Medications Enoxaparin Sodium (Lovenox -) 40 mg SQ DAILY [facility] Last Admin: 05/19/20 10:05 Dose: 40 mg Documented by: Furosemide (Lasix Injection -) 40 mg IVPUSH DAILY [facility] Last Admin: 05/18/20 10:36 Dose: 40 mg Documented by: Loperamide HCl (Imodium -) 2 mg PO Q8H PRN PRN Reason: DIARRHEA Methadone HCl (Dolophine -) 10 mg PO ONCE ONE Stop: 05/20/20 10:01 Methadone HCl (Dolophine -) 5 mg PO ONCE ONE Stop: 05/21/20 06:01 Nicotine (Nicoderm Patch -) 14 mg TD DAILY [facility] Last Admin: 05/19/20 10:05 Dose: 14 mg Documented by: Pneumococcal 13-Valent Conj Vacc (Prevnar 13 Syringe -) 0.5 ml IM .ONCE ONE Stop: 05/18/20 20:45 Sertraline HCl (Zoloft -) 100 mg PO [facility] Sertraline HCl (Zoloft -) 25 mg PO DAILY [facility] Last Admin: 05/19/20 10:05 Dose: 25 mg Documented by: - Objective Vital Signs: Vital Signs Temperature 98.4 F 05/19/20 06:00 Pulse Rate 84 05/19/20 06:00 Respiratory Rate 18 05/19/20 06:00 Blood Pressure 118/68 05/19/20 06:00 O2 Sat by Pulse Oximetry (%) 94 L 05/19/20 06:00 Constitutional: Yes: No Distress, Calm, Thin Neck: Yes: Supple Cardiovascular: Yes: Regular Rate and Rhythm Respiratory: Yes: Regular, CTA Bilaterally Gastrointestinal: Yes: Soft, Hypoactive Bowel Sounds Edema: No Labs: CBC, BMP 05/19/20 05:44 05/19/20 05:44 INR, PTT INR 1.17 (0.83-1.09) H 05/19/20 05:44 Problem List - Problems (1) Alcohol dependence with withdrawal, uncomplicated Code(s): F10.230 - ALCOHOL DEPENDENCE WITH WITHDRAWAL, UNCOMPLICATED (2) CHF (congestive heart failure) Code(s): I50.9 - HEART FAILURE, UNSPECIFIED Qualifiers: Heart failure type: diastolic Heart failure chronicity: acute on chronic Qualified Code(s): I50.33 - Acute on chronic diastolic (congestive) heart failure (3) Pedal edema Code(s): R60.0 - LOCALIZED EDEMA (4) Shortness of breath Code(s): R06.02 - SHORTNESS OF BREATH (5) Opioid dependence with withdrawal Code(s): F11.23 - OPIOID DEPENDENCE WITH WITHDRAWAL Assessment/Plan 05/19/2020 Echo: Normal LV size and fxn, tr MR, TR LVEF 60% 1. Acute on chronic LV diastolic heart failure resolved 2. Substance abuse with ETOH and Heroin 3. COPD PLAN: 1. Change to oral diuretics with Lasix 20 mg po QD and monitor I/Os, renal function and electrolytes 2. Methadone 3. D/c planning
--- NOTE | 2020-05-19 11:21 | ECHO ---
Name: MARIANNE BOO Exam:Adult Echocardiogram Study Date: 05/19/2020 09:19 AM Age: 55 yrs Reason For Study: LV/RV FXN Height: 70 in Weight: 180 lb BSA: 2.0 m2 MMode/2D Measurements & Calculations IVSd: 1.1 cm Ao root diam: 3.4 cm LVIDd: 4.4 cm LA dimension: 3.2 cm LVIDs: 3.0 cm ACS: 2.4 cm LVPWd: 1.1 cm LVPWs: 1.6 cm EDV(Teich): 88.5 ml ESV(Teich): 34.1 ml LVOT diam: 2.5 cm TAPSE: 2.2 cm RV S [place]: 14.1 cm/sec Doppler Measurements & Calculations MV V2 max: 89.6 cm/sec MV E max gaston: 41.5 cm/sec MV max P.2 mmHg MV A max gaston: 82.4 cm/sec MV V2 mean: 56.7 cm/sec MV E/A: 0.50 MV mean P.4 mmHg MV dec time: 0.25 sec MV V2 VTI: 20.4 cm Ao V2 max: 162.9 cm/sec LV V1 max P.6 mmHg Ao max P.6 mmHg LV V1 max: 118.5 cm/sec MATI(V,D): 3.6 cm2 PA V2 max: 100.4 cm/sec Med Peak E' [place]: 5.5 cm/sec PA max P.0 mmHg Med E/e': 7.6 Lat Peak E' [place]: 9.4 cm/sec Lat E/e': 4.4 Procedure A complete two-dimensional transthoracic echocardiogram was performed (2D, M-mode, Doppler and color flow Doppler). Left Ventricle The left ventricular size, thickness and function are normal. Ejection Fraction = 60%. E/A reversal c onsistent with but not diagnostic of poor LV compliance. Septal motion is consistent with conduction abnormalit y. Right Ventricle The right ventricle is normal in size and function. Mitral Valve The mitral valve is normal in structure and function. There is trace mitral regurgitation. Tricuspid Valve The tricuspid valve is normal in structure and function. There is trace tricuspid regurgitation. Ther e was insufficient TR detected to calculate RV systolic pressure. Aortic Valve The aortic valve is normal in structure and function. Pulmonic Valve The pulmonic valve is normal in structure and function. Interpretation Summary The left ventricular size, thickness and function are normal Septal motion is consistent with conduction abnormality. Ejection Fraction = 60%. There is trace mitral regurgitation. There is trace tricuspid regurgitation. MD Jamie Brooks 05/19/2020 11:21 AM
[2020-05-19] MEDS ORDERED: ACETAMINOPHEN 325 MG TABLET (FP) PO PRN (14:11)
[2020-05-19] MEDS: FUROSEMIDE 40 MG/4 ML INJECTABLE VIAL IVPUSH SCH (14:12)
[2020-05-19 14:58] VITALS: BP 104/51; PULSE 82; TEMP 98.1
--- NOTE | 2020-05-19 15:10 | PN ---
Progress Note (short form) - Note Progress Note: Breathing and LE edema improved today. Less SOB. No acute events overnight. Intake & Output 05/16/20 05/17/20 05/18/20 05/19/20 23:59 23:59 23:59 23:59 Intake Total 0 480 Balance 0 480 Weight 180 lb 176 lb 11.2 oz Last Vital Signs Temp Pulse Resp BP Pulse Ox 98.1 F 82 18 104/51 L 97 05/19/20 14:00 05/19/20 14:00 05/19/20 10:00 05/19/20 14:00 05/19/20 14:00 Active Medications Acetaminophen (Tylenol -) 650 mg PO Q6H PRN PRN Reason: PAIN LEVEL 1-5 Enoxaparin Sodium (Lovenox -) 40 mg SQ DAILY [facility] Last Admin: 05/19/20 10:05 Dose: 40 mg Documented by: Furosemide (Lasix Injection -) 40 mg IVPUSH DAILY [facility] Last Admin: 05/19/20 14:12 Dose: Not Given Documented by: Loperamide HCl (Imodium -) 2 mg PO Q8H PRN PRN Reason: DIARRHEA Methadone HCl (Dolophine -) 10 mg PO ONCE ONE Stop: 05/20/20 10:01 Methadone HCl (Dolophine -) 5 mg PO ONCE ONE Stop: 05/21/20 06:01 Nicotine (Nicoderm Patch -) 14 mg TD DAILY [facility] Last Admin: 05/19/20 10:05 Dose: 14 mg Documented by: Pneumococcal 13-Valent Conj Vacc (Prevnar 13 Syringe -) 0.5 ml IM .ONCE ONE Stop: 05/18/20 20:45 Sertraline HCl (Zoloft -) 100 mg PO [facility] Sertraline HCl (Zoloft -) 25 mg PO DAILY [facility] Last Admin: 05/19/20 10:05 Dose: 25 mg Documented by: Constitutional: Yes: No Distress, Calm Eyes: Yes: Conjunctiva Clear, EOM Intact HENT: Yes: Atraumatic, Normocephalic Neck: Yes: Supple, Trachea Midline Cardiovascular: Yes: Regular Rate and Rhythm Respiratory: Yes: Diminished, Rales, Rhonchi. No: Accessory Muscle Use, Stridor, Tachypnea, Wheezes ...Inspection: Yes: WNL ...Clubbing: No Gastrointestinal: Yes: Normal Bowel Sounds, Soft Renal/: Yes: WNL Breast(s): Yes: Nipple Inversion Musculoskeletal: Yes: WNL Extremities: Yes: WNL Edema: Yes Peripheral Pulses WNL: Yes Integumentary: Yes: WNL Neurological: Yes: WNL, Alert, Oriented ...Motor Strength: WNL Psychiatric: Yes: WNL, Alert, Oriented Labs: Laboratory Results - last 24 hr 05/17/20 05/18/20 05/18/20 23:45 20:30 20:30 WBC RBC Hgb Hct MCV MCH MCHC RDW Plt Count MPV Retic Count PT with INR INR Sodium Potassium Chloride Carbon Dioxide Anion Gap BUN Creatinine Est GFR (CKD-EPI)AfAm Est GFR (CKD-EPI)NonAf Random Glucose Calcium Phosphorus Magnesium Total Bilirubin AST ALT Alkaline Phosphatase Total Protein Albumin Vitamin B12 1081 H Serum Folate 8 COVID-19 ([facility]UR) Not detected HIV Ag/Ab Combo Qual Negative 05/19/20 05/19/20 05/19/20 05:44 05:44 05:44 WBC 8.4 RBC 4.60 Hgb 12.9 Hct 39.1 MCV 85.0 MCH 28.0 MCHC 32.9 RDW 14.7 Plt Count 389 MPV 7.4 L Retic Count 1.60 H PT with INR 13.80 H INR 1.17 H Sodium 139 Potassium 3.7 Chloride 102 Carbon Dioxide 27 Anion Gap 10 BUN 13.8 Creatinine 1.0 Est GFR (CKD-EPI)AfAm 97.77 Est GFR (CKD-EPI)NonAf 84.35 Random Glucose 106 Calcium 8.9 Phosphorus 4.0 Magnesium 1.8 Total Bilirubin 0.8 AST 24 ALT 15 Alkaline Phosphatase 48 Total Protein 7.7 Albumin 2.5 L Vitamin B12 Serum Folate COVID-19 ([facility]) HIV Ag/Ab Combo Qual Imaging - Results Chest X-ray: Report Reviewed, Image Reviewed Problem List - Problems (1) Alcohol dependence with withdrawal, uncomplicated Code(s): F10.230 - ALCOHOL DEPENDENCE WITH WITHDRAWAL, UNCOMPLICATED (2) CHF (congestive heart failure) Code(s): I50.9 - HEART FAILURE, UNSPECIFIED (3) Edema Code(s): R60.9 - EDEMA, UNSPECIFIED (4) Pedal edema Code(s): R60.0 - LOCALIZED EDEMA (5) Shortness of breath Code(s): R06.02 - SHORTNESS OF BREATH (6) Insomnia secondary to depression with anxiety Code(s): F51.05 - INSOMNIA DUE TO OTHER MENTAL DISORDER; F41.8 - OTHER SPECIFIED ANXIETY DISORDERS (7) COPD (chronic obstructive pulmonary disease) Code(s): J44.9 - CHRONIC OBSTRUCTIVE PULMONARY DISEASE, UNSPECIFIED (8) Insomnia Code(s): G47.00 - INSOMNIA, UNSPECIFIED (9) Nicotine dependence Code(s): F17.200 - NICOTINE DEPENDENCE, UNSPECIFIED, UNCOMPLICATED SILVIO Screen - SILVIO History Previously diagnosed with Sleep Apnea: No If Yes, currently using CPAP to treat your SILVIO: No - SNORING Do you snore loudly (enough to be heard thru closed doors)?: No - TIRED Do you often feel tired, fatigued, or sleepy during daytime?: Yes - OBSERVED Has anyone observed you stop breathing during your sleep?: No - BLOOD PRESSURE Do you have or are being treated for high blood pressure?: Yes - BMI Answer Y if weight exceeds amount listed for your height: No .: HEIGHT & WEIGHT (lbs): 4'10" 167lbs; 4'11" 175 lbs; 5'0" 179lbs;. 5'1" 185lbs; 5'2" 191lbs; 5'3" 197lbs;. 5'4" 204lbs; 5'5" 210lbs; 5'6" 216lbs;. 5'7" 223lbs; 5'8" 230lbs; 5'9" 237lbs;. 5'10" 243lbs; 5'11" 250lbs; 6' 258lbs;. 6'1" 265lbs; 6'2" 272lbs; 6'3" 279lbs;. 6'4" 287lbs; 6'5" 295lbs - AGE Is your age over 50 yrs old?: Yes - NECK CIRCUMFERENCE Neck Circumference 40cm: No - GENDER Male: Yes - SCORE Total Score: 4 Score Interpretation: Intermediate Risk of SILVIO .: Interpretation: Score 0-2: Low Risk SILVIO. Score 3-4: Intermediate Risk SILVIO. Score 5-8: High Risk SILVIO Assessment/Plan Lasix Daily weights Follow I & O No smoking or illicit substance use was discussed Outpatient PFTs Would confirm HIV & Hepatitis status Dr Dacosta Problem List - Problems (1) Alcohol dependence with withdrawal, uncomplicated Code(s): F10.230 - ALCOHOL DEPENDENCE WITH WITHDRAWAL, UNCOMPLICATED (2) CHF (congestive heart failure) Code(s): I50.9 - HEART FAILURE, UNSPECIFIED Qualifiers: Heart failure type: diastolic Heart failure chronicity: acute on chronic Qualified Code(s): I50.33 - Acute on chronic diastolic (congestive) heart failure (3) Edema Code(s): R60.9 - EDEMA, UNSPECIFIED (4) Pedal edema Code(s): R60.0 - LOCALIZED EDEMA (5) Shortness of breath Code(s): R06.02 - SHORTNESS OF BREATH (6) Insomnia secondary to depression with anxiety Code(s): F51.05 - INSOMNIA DUE TO OTHER MENTAL DISORDER; F41.8 - OTHER SPECIFIED ANXIETY DISORDERS (7) COPD (chronic obstructive pulmonary disease) Code(s): J44.9 - CHRONIC OBSTRUCTIVE PULMONARY DISEASE, UNSPECIFIED (8) Insomnia Code(s): G47.00 - INSOMNIA, UNSPECIFIED (9) Nicotine dependence Code(s): F17.200 - NICOTINE DEPENDENCE, UNSPECIFIED, UNCOMPLICATED
[2020-05-19 15:32] VITALS: BMI 25.2
--- NOTE | 2020-05-19 15:53 | PN ---
Teaching Attending Note Name of Resident: Vickey Atkinson ATTENDING PHYSICIAN STATEMENT I saw and evaluated the patient. I reviewed the resident's note and discussed the case with the resident. I agree with the resident's findings and plan as documented. SUBJECTIVE: Patient feels well, no signs of withdrawal at this time OBJECTIVE: Vital Signs Period Temp Pulse Resp BP Sys/Yi Pulse Ox Last 24 Hr 98.1 F-99.4 F 76-84 16-18 102-119/51-85 94-97 GENERAL: Awake, alert, No distress. HEAD: Normal with no signs of trauma. EYES: Pupils equal, round and reactive to light, extraocular movements intact, sclera anicteric, conjunctiva clear. No lid lag. EARS, NOSE, THROAT: Ears normal, nares patent, oropharynx clear without exudates. Moist mucous membranes. NECK: Normal range of motion, No JVD LUNGS: Breath sounds equal, clear to auscultation bilaterally. No wheezes, and no crackles. No accessory muscle use. HEART: Regular rate and rhythm, normal S1 and S2 without murmur, rub or gallop. ABDOMEN: Soft, nontender, not distended, normoactive bowel sounds, no guarding, no rebound, no masses. No hepatomegaly or splenomegaly. MUSCULOSKELETAL: Normal range of motion at all joints. No bony deformities or tenderness. No CVA tenderness. NEUROLOGICAL: Cranial nerves II-XII intact. Normal speech. PSYCHIATRIC: Cooperative. Good eye contact. Appropriate mood and affect. SKIN: Warm, dry, normal turgor, no rashes or lesions noted. ASSESSMENT AND PLAN: 55 y/o M with pmh as noted Substance abuse hx who presents from detox with lower extremity edema. LE Edema: now resolved Likely functional in setting of normal 2D Echo vs. poor nutrition/liver dysfunction in setting of ETOH abuse hx. Urine Protein negative Continue Lasix PRN for edema Pulmonary infiltrates on CXR Await Pulm recs Can be 2/2 substance abuse leading to fibrosis outpatient workup with PFTs Check HIV, hepatitis Substance abuse continue methadone, transfer to [facility] today Rest of plan as noted in residents note
--- NOTE | 2020-05-19 21:09 | DS ---
Physical Exam: SUBJECTIVE: Patient seen and examined at bedside. Patient denies any acute overnight events. Patient endorses resolution of withdrawal symptoms and wants to complete detox at [facility]. OBJECTIVE: Vital Signs Period Temp Pulse Resp BP Sys/Yi Pulse Ox Last 24 Hr 98.1 F-98.9 F 76-84 18-18 102-118/51-68 94-97 PHYSICAL EXAM GENERAL: The patient is awake, alert, and fully oriented, in no acute distress. LUNGS: Breath sounds equal, clear to auscultation bilaterally, no wheezes, no crackles, no accessory muscle use. HEART: Regular rate and rhythm, S1, S2 without murmur, rub or gallop. ABDOMEN: Soft, nontender, nondistended, normoactive bowel sounds, no guarding, no rebound, no hepatosplenomegaly, no masses. EXTREMITIES: 2+ pulses, warm, well-perfused, no edema. SKIN: Warm, dry, normal turgor, no rashes or lesions noted. LABS Laboratory Results - last 24 hr 05/17/20 05/18/20 05/18/20 23:45 20:30 20:30 WBC RBC Hgb Hct MCV MCH MCHC RDW Plt Count MPV Retic Count PT with INR INR Sodium Potassium Chloride Carbon Dioxide Anion Gap BUN Creatinine Est GFR (CKD-EPI)AfAm Est GFR (CKD-EPI)NonAf Random Glucose Calcium Phosphorus Magnesium Total Bilirubin AST ALT Alkaline Phosphatase Total Protein Albumin Vitamin B12 1081 H Serum Folate 8 COVID-19 (ANKUR) Not detected HIV Ag/Ab Combo Qual Negative 05/19/20 05/19/20 05/19/20 05:44 05:44 05:44 WBC 8.4 RBC 4.60 Hgb 12.9 Hct 39.1 MCV 85.0 MCH 28.0 MCHC 32.9 RDW 14.7 Plt Count 389 MPV 7.4 L Retic Count 1.60 H PT with INR 13.80 H INR 1.17 H Sodium 139 Potassium 3.7 Chloride 102 Carbon Dioxide 27 Anion Gap 10 BUN 13.8 Creatinine 1.0 Est GFR (CKD-EPI)AfAm 97.77 Est GFR (CKD-EPI)NonAf 84.35 Random Glucose 106 Calcium 8.9 Phosphorus 4.0 Magnesium 1.8 Total Bilirubin 0.8 AST 24 ALT 15 Alkaline Phosphatase 48 Total Protein 7.7 Albumin 2.5 L Vitamin B12 Serum Folate COVID-19 (ANKUR) HIV Ag/Ab Combo Qual HOSPITAL COURSE: Date of Admission:05/17/20 Jesús is a 55M w a history of COPD, Insomnia, Heroin abuse, Alcohol abuse, anxiety, Depression, possible CHF (was on diuretic) and Tobacco use. While being admitted into [facility] for heroin detox patient was found to have bilateral UE and LE edema and the patient was sent to the ED. Patient was evaluated by Cardiology (Dr. Smyth & Dr. Easley) and was treated for possible possible CHF exacerbation. Patient was found to have EF of 60% on echo with conduction abnormalities of ventricular wall. PAtient was placed on lasix 40mg IV BID and bilateral crackles and LE edema resolved. Mr. Espinosa was treated for heroin and alcohol withdrawal via librium protocol and methadone taper with the help of addiction medicine (Dr. Pérez). The patient was also found to be malnourished via hypoalbuminemia on lab work. Patient was treated with electrolyte replenishment and full diet. Patient is hemodynamically stable and is medically cleared for transfer to [facility] to complete detox. Date of Discharge: 05/19/20 Minutes to complete discharge: 40 Discharge Summary Problems reviewed: Yes Reason For Visit: CONGESTIVE HEART FAILURE, EDEMA Current Active Problems Alcohol dependence with withdrawal, uncomplicated (Chronic) Nicotine dependence (Chronic) Opioid dependence with withdrawal (Chronic) Condition: Good - Instructions Diet, Activity, Other Instructions: Your Visit: You were admitted to the hospital with arm and leg swelling after you went to [facility] for detox. You were given medication to get rid of the extra fluid. While you were in the hospital, we evaluated you with lab work, blood work, and imaging including a CT scan of your head and an ultrasound of your carotid arteries, and an ultrasound of your heart. The ultrasound of your heart showed some abnormalities in the ivy of your heart. You will need to follow up with your vmware architect after you are treated at [facility]. A chest x-ray showed possible lung disease from smoking/drug use. You were then evaluated by our field specialist and you were found to have almost passed out, which was likely a result of dehydration. You were found to have alcohol and heroin withdrawal and you were treated with fluids, methadone, and a heart medication. You were also given medication to detox. Medications: Please START taking LASIX 20mg once a day. Please continue taking your medications as prescribed. FOLLOW UPS: Your primary care doctor within 2 weeks of discharge to review your labwork. If you do not have one, you can follow up at the [facility] clinic located at [address] [place] [address] ([phone]) Please follow up with Dr. Smyth, cardiology, within 2 weeks of discharge to review your heart ultrasound results Please follow up with Dr. Dacosta, pulmonology, within 3 weeks of discharge. You will need to have pulmonary function tests done (PFTs). Other Instructions: You are being transferred to [facility] for detox Call 911 or return to the emergency room if you have chest pain, difficulty breathing, increased swelling again, or weight gain. Referrals: Derek Aldana MD [Staff Physician] - 2 Weeks (Resident Clinic) Inocencio Smyth MD [Staff Physician] - 2 Weeks (Review echo findings of wall conduction abnormalities) Melchor Dacosta MD [Staff Physician] - 3 Weeks (review pulmonary findings) Disposition: TRANSFER ACUTE CARE/OTHER HOSP - Home Medications Comprehensive Discharge Medication List: Ambulatory Orders Quetiapine Fumarate [Seroquel -] 100 mg PO HS 03/06/20 Albuterol Sulfate Inhaler - [Ventolin HFA Inhaler -] 2 puff IH PRN #1 inhaler 03/11/20 Sertraline HCl [Zoloft -] 25 mg PO DAILY 05/18/20 metFORMIN HCL [Metformin HCl ER] 500 mg PO DAILY 05/18/20 Furosemide [Lasix] 20 mg PO DAILY #14 tablet 05/19/20 traZODone HCL [Trazodone HCl] 100 mg PO HS 05/19/20 This patient is new to me today: No Emergency Visit: Yes ED Registration Date: 05/17/20 Care time: The patient presented to the Emergency Department on the above date and was hospitalized for further evaluation of their emergent condition. Critical Care patient: No - Discharge Referral Referred to [facility] Med P.C.: No ATTENDING PHYSICIAN STATEMENT I saw and evaluated the patient. I reviewed the resident's note and discussed the case with the resident. I agree with the resident's findings and plan as documented. SUBJECTIVE: OBJECTIVE: ASSESSMENT AND PLAN:
[2020-05-19] MEDS ORDERED: SERTRALINE HCL 50 MG TABLET (FP) PO SCH (22:00)
[2020-05-20] MEDS ORDERED: METHADONE HCL 10 MG TABLET PO ONE (10:00)
[2020-05-21] MEDS ORDERED: METHADONE HCL 5 MG TABLET PO ONE (06:00)
== END 2020-05-19 18:24 | disposition other institution (70) | DRG 194 ==
LOC: JER 18:29 → JERBED 22:22 → J7W 05-18 18:54
PROVIDERS: ADMIT Internal Medicine; ATTEND Internal Medicine
DX: I50.33 Acute on chronic diastolic (congestive) heart failure (principal); D63.8 Anemia in other chronic diseases classified elsewhere; I51.7 Cardiomegaly; E88.09 Other disorders of plasma-protein metabolism, not elsewhere classified; F10.230 Alcohol dependence with withdrawal, uncomplicated; R60.9 Edema, unspecified; R60.0 Localized edema; R06.02 Shortness of breath; F51.05 Insomnia due to other mental disorder; F41.8 Other specified anxiety disorders; J44.9 Chronic obstructive pulmonary disease, unspecified; F11.23 Opioid dependence with withdrawal; E46 Unspecified protein-calorie malnutrition; J84.9 Interstitial pulmonary disease, unspecified; F17.210 Nicotine dependence, cigarettes, uncomplicated; Z68.25 Body mass index [BMI] 25.0-25.9, adult
CPT/HCPCS: 36415; 71046-TC-FY; 76775-TC; 80053; 80307; 81003; 82550; 82565; 82607; 82746; 83735; 83880; 84100; 84156; 84484; 85025; 85027; 85045; 85610; 85730; 87389; 93005; 93010; 93306-TC; 99285-25; J1644; U0003

== ENCOUNTER 2020-05-19 18:55 | Inpatient (IN) | payer OTHER ==
[2020-05-19 19:13] VITALS: BMI 24.8
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
[2020-05-19] MEDS ORDERED: MELATONIN 5 MG TABLETS PO PRN (19:36)
[2020-05-19] MEDS ORDERED: MAG HYDROX/AL HYDROX/SIMETH 30 ML UNIT-DOSE CUP PO PRN (19:36)
[2020-05-19] MEDS ORDERED: ACETAMINOPHEN 325 MG TABLET (FP) PO PRN ×2 (19:36)
[2020-05-19] MEDS ORDERED: MAGNESIUM CITRATE 300 ML BOTTLE PO PRN (19:36)
[2020-05-19] MEDS ORDERED: BISMUTH SUBSALICYLATE 524 MG/30 ML UD PO PRN (19:36)
[2020-05-19] MEDS ORDERED: IBUPROFEN 400 MG TABLET (FP) PO PRN (19:36)
[2020-05-19] MEDS ORDERED: MENTHOL/PHENOL 1 EACH UD MM PRN (19:36)
[2020-05-19] MEDS ORDERED: MAGNESIUM HYDROX 2400MG/30ML ORAL SUSPENSION 30 ML CUP PO PRN (19:36)
[2020-05-19] MEDS ORDERED: cloNIDine HCL 0.1 MG TABLET PO PRN (19:40)
[2020-05-19] MEDS ORDERED: diazePAM 5 MG TABLET PO PRN (19:40)
[2020-05-19] MEDS ORDERED: ALBUTEROL SO4 HFA INHALER IH SCH (19:45)
[2020-05-19] MEDS ORDERED: diazePAM 5 MG TABLET PO ONE (20:00)
[2020-05-19] MEDS ORDERED: METHADONE HCL 10 MG TABLET (FOR DETOX USE ONLY) PO ONE (20:00)
[2020-05-19] MEDS ORDERED: QUEtiapine FUMARATE 100 MG TABLET (FP) PO ONE (21:00)
[2020-05-19] MEDS ORDERED: traZODone HCL 50 MG TABLET (FP) PO ONE (21:00)
--- NOTE | 2020-05-19 21:07 | DS ---
Physical Exam: SUBJECTIVE: Patient seen and examined at bedside. Patient denies any acute overnight events. Patient endorses resolution of withdrawal symptoms and wants to complete detox at [facility]. OBJECTIVE: Vital Signs Period Temp Pulse Resp BP Sys/Yi Pulse Ox Last 24 Hr 98.1 F-98.1 F 89-89 18-18 108-108/68-68 95 PHYSICAL EXAM GENERAL: The patient is awake, alert, and fully oriented, in no acute distress. LUNGS: Breath sounds equal, clear to auscultation bilaterally, no wheezes, no crackles, no accessory muscle use. HEART: Regular rate and rhythm, S1, S2 without murmur, rub or gallop. ABDOMEN: Soft, nontender, nondistended, normoactive bowel sounds, no guarding, no rebound, no hepatosplenomegaly, no masses. EXTREMITIES: 2+ pulses, warm, well-perfused, no edema. SKIN: Warm, dry, normal turgor, no rashes or lesions noted. LABS Laboratory Results - last 24 hr 05/19/20 20:34 POC Glucometer 108 HOSPITAL COURSE: Date of Admission:05/19/20 Jesús is a 55M w a history of COPD, Insomnia, Heroin abuse, Alcohol abuse, anxiety, Depression, possible CHF (was on diuretic) and Tobacco use. While being admitted into [facility] for heroin detox patient was found to have bilateral UE and LE edema and the patient was sent to the ED. Patient was evaluated by Cardiology (Dr. Smyth & Dr. Easley) and was treated for possible possible CHF exacerbation. Patient was found to have EF of 60% on echo with conduction abn ormalities of ventricular wall. PAtient was placed on lasix 40mg IV BID and bilateral crackles and LE edema resolved. Mr. Espinosa was treated for heroin and alcohol withdrawal via librium protocol and methadone taper with the help of addiction medicine (Dr. Pérez). The patient was also found to be malnourished via hypoalbuminemia on lab work. Patient was treated with electrolyte replenishment and full diet. Patient is hemodynamically stable and is medically cleared for transfer to [facility] to complete detox. Date of Discharge: 05/19/20 Minutes to complete discharge: 35 Discharge Summary Reason For Visit: DETOX-NIYA(ARIELLA) Current Active Problems Alcohol dependence with withdrawal, uncomplicated (Chronic) Nicotine dependence (Chronic) Opioid dependence with withdrawal (Chronic) - Instructions - Home Medications Comprehensive Discharge Medication List: Ambulatory Orders Quetiapine Fumarate [Seroquel -] 100 mg PO HS 03/06/20 Albuterol Sulfate Inhaler - [Ventolin HFA Inhaler -] 2 puff IH PRN #1 inhaler 03/11/20 Sertraline HCl [Zoloft -] 25 mg PO DAILY 05/18/20 metFORMIN HCL [Metformin HCl ER] 500 mg PO DAILY 05/18/20 Furosemide [Lasix] 20 mg PO DAILY #14 tablet 05/19/20 traZODone HCL [Trazodone HCl] 100 mg PO HS 05/19/20 ATTENDING PHYSICIAN STATEMENT I saw and evaluated the patient. I reviewed the resident's note and discussed the case with the resident. I agree with the resident's findings and plan as documented. SUBJECTIVE: OBJECTIVE: ASSESSMENT AND PLAN:
[2020-05-19] MEDS: METHOCARBAMOL 500 MG TABLET PO PRN (21:34)
[2020-05-19] MEDS: THIAMINE HCL 100 MG TABLET (FP) PO SCH (21:34)
[2020-05-19] MEDS: diazePAM 5 MG TABLET PO SCH (22:36)
[2020-05-20] MEDS: diazePAM 5 MG TABLET PO SCH ×3 (05:14→22:23)
[2020-05-20] MEDS ORDERED: METHADONE HCL 5 MG TABLET (FOR DETOX USE ONLY) PO ONE (10:00)
[2020-05-20] MEDS: PRENATAL VITAMINS W/ FOLIC ACID TABLET (FP) PO SCH (10:08)
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
--- NOTE | 2020-05-20 11:56 | PN ---
S CIWA - CIWA Score Nausea/Vomitin-Mild Nausea/No Vomiting Muscle Tremors: 2 Anxiety: 2 Agitation: 1-Slight > Activity Paroxysmal Sweats: No Perspiration Orientation: 0-Oriented Tacttile Disturbances: 1-Very Mild Itch/Numbness Auditory Disturbances: 0-None Visual Disturbances: 0-None Headache: 1-Very Mild CIWA-Ar Total Score: 8 BHS COWS - Scale Resting Pulse: 0= [place] 80 or Below Sweatin= No chills or Flushing Restless Observation: 0= Sits Still Pupil Size: 1= Pupils >than Normal Bone or Joint Aches: 1= Mild Discomfort Runny Nose/ Eye Tearin= Nasal Congestion GI Upset > 30mins: 1= Stomach Cramp Tremor Observation of Outstretched Hands: 2= Slight Tremor Visible Yawning Observation: 1= 1-2x During Session Anxiety or Irritability: 2=Irritable/Anxious Goose Flesh Skin: 0=Smooth Skin COWS Score: 9 S Progress Note (SOAP) Subjective: alert,irritable,anxious,aching pain in the body ,no sob,abdominal cramp,nausea,pain in the body back Objective: 05/20/20 11:53 Vital Signs Temperature 97.8 F 05/20/20 08:22 Pulse Rate 78 05/20/20 08:22 Respiratory Rate 18 05/20/20 08:22 Blood Pressure 108/55 L 05/20/20 08:22 O2 Sat by Pulse Oximetry (%) 95 05/20/20 05:06 patient has covid 19 tested [facility] on 05/17/20 not detected Assessment: 05/20/20 11:55 withdrawal symptom Plan: continue detox methadone and valium regimen,Dr Sanchez consultation greatly appreciated
[2020-05-20] MEDS ORDERED: PNEUMOCOCCAL 23 VACCINE 0.5 ML VIAL IM ONE (12:00)
[2020-05-20] MEDS ORDERED: PNEUMOC 13-VAL CONJ-DIP CRM/PF 0.5 ML DISP.SYRIN IM ONE (12:00)
[2020-05-20] MEDS: FUROSEMIDE 20 MG TABLET (FP) PO SCH (12:03)
[2020-05-20] MEDS: SUVOREXANT 10 MG TABLET PO PRN (22:23)
[2020-05-20] MEDS: THIAMINE HCL 100 MG TABLET (FP) PO SCH (22:23)
[2020-05-20] MEDS: hydrOXYzine PAMOATE 25 MG CAPSULE (FP) PO PRN (23:42)
[2020-05-21] MEDS: METHOCARBAMOL 500 MG TABLET PO PRN ×2 (03:34→10:17)
[2020-05-21] MEDS: hydrOXYzine PAMOATE 25 MG CAPSULE (FP) PO PRN (03:34)
[2020-05-21] MEDS: diazePAM 5 MG TABLET PO SCH ×2 (05:15→17:50)
[2020-05-21] MEDS ORDERED: METHADONE HCL 10 MG TABLET (FOR DETOX USE ONLY) PO ONE (10:00)
[2020-05-21] MEDS: PRENATAL VITAMINS W/ FOLIC ACID TABLET (FP) PO SCH (10:16)
[2020-05-21] MEDS: FUROSEMIDE 20 MG TABLET (FP) PO SCH (10:34)
--- NOTE | 2020-05-21 13:56 | PN ---
S CIWA - CIWA Score Nausea/Vomitin-No Nausea/No Vomiting Muscle Tremors: 1-None Visible, but [place] Anxiety: 1-Mildly Anxious Agitation: 1-Slight > Activity Paroxysmal Sweats: No Perspiration Orientation: 0-Oriented Tacttile Disturbances: 1-Very Mild Itch/Numbness Auditory Disturbances: 0-None Visual Disturbances: 0-None Headache: 1-Very Mild CIWA-Ar Total Score: 5 BHS Progress Note (SOAP) Subjective: alert,irritable,anxious,interrupted sleep,no cheat pain,no sob Objective: 05/21/20 15:08 Vital Signs Temperature 98.2 F 05/21/20 12:42 Pulse Rate 69 05/21/20 12:42 Respiratory Rate 17 05/21/20 12:42 Blood Pressure 105/60 05/21/20 12:42 O2 Sat by Pulse Oximetry (%) 99 05/21/20 12:42 Assessment: 05/21/20 15:09 withdrawal symptom Plan: continue detox valium regimen,discharge in am
--- NOTE | 2020-05-21 15:15 | PN ---
[facility] CIWA - CIWA Score Nausea/Vomitin-No Nausea/No Vomiting Muscle Tremors: 1-None Visible, but [place] Anxiety: 1-Mildly Anxious Agitation: 1-Slight > Activity Paroxysmal Sweats: No Perspiration Orientation: 0-Oriented Tacttile Disturbances: 1-Very Mild Itch/Numbness Auditory Disturbances: 0-None Visual Disturbances: 0-None Headache: 1-Very Mild CIWA-Ar Total Score: 5 [facility] COWS - Scale Resting Pulse: 0= [place] 80 or Below Sweatin= No chills or Flushing Restless Observation: 0= Sits Still Pupil Size: 0= Normal to Room Light Bone or Joint Aches: 1= Mild Discomfort Runny Nose/ Eye Tearin= Nasal Congestion GI Upset > 30mins: 1= Stomach Cramp Tremor Observation of Outstretched Hands: 1= Tremor [place], Not Seen Yawning Observation: 1= 1-2x During Session Anxiety or Irritability: 1=Feels Anxious/Irritable Goose Flesh Skin: 0=Smooth Skin COWS Score: 6 [facility] Progress Note (SOAP) Subjective: alert,irritable,anxious,interrupted sleep,pain in the body and back,no chest pain,no sob Objective: 05/21/20 15:14 Vital Signs Temperature 98.2 F 05/21/20 12:42 Pulse Rate 69 05/21/20 12:42 Respiratory Rate 17 05/21/20 12:42 Blood Pressure 105/60 05/21/20 12:42 O2 Sat by Pulse Oximetry (%) 99 05/21/20 12:42 Assessment: 05/21/20 15:14 withdrawal symptom Plan: continue detox methadone and valium regimen,discharge in am,follow up with medical provider at [facility]
[2020-05-21] MEDS: SUVOREXANT 10 MG TABLET PO PRN (22:26)
[2020-05-21] MEDS: THIAMINE HCL 100 MG TABLET (FP) PO SCH (22:26)
[2020-05-22] MEDS: hydrOXYzine PAMOATE 25 MG CAPSULE (FP) PO PRN (01:02)
[2020-05-22] MEDS: METHOCARBAMOL 500 MG TABLET PO PRN (01:02)
[2020-05-22] MEDS ORDERED: diazePAM 5 MG TABLET PO ONE (06:00)
[2020-05-22] MEDS ORDERED: METHADONE HCL 5 MG TABLET (FOR DETOX USE ONLY) PO ONE (06:00)
--- NOTE | 2020-05-22 10:02 | DS ---
[facility] Detox Discharge Summary Admission Date: 05/19/20 Discharge Date: 05/22/20 - History Present History: Alcohol Dependence, Opioid Dependence Additional Comments: Alert and oriented x 3, in no acute respiratory distress. Full ROM, ambulating in the unit without assistance. Skin warm to touch, no lesions noted. Completed detox protocol, stable for discharge today. Pertinent Past History: History of COPD, Pneumonia,CHF, alcohol, heroin and nicotine use disorder. - Physical Exam Results Vital Signs: Vital Signs Temperature 100 F H 05/22/20 05:46 Pulse Rate 67 05/22/20 05:46 Respiratory Rate 20 05/22/20 05:46 Blood Pressure 108/64 05/22/20 05:46 O2 Sat by Pulse Oximetry (%) 96 05/22/20 05:46 Vital Signs 05/22/20 05:46 Temperature 100 F H Pulse Rate 67 Respiratory 20 Rate Blood Pressure 108/64 O2 Sat by Pulse 96 Oximetry (%) Laboratory Last Values POC Glucometer 104 UNITS (80-120) 05/22/20 05:52 Laboratory Tests 05/19/20 05/20/20 05/21/20 20:34 05:16 05:15 POC Glucometer 108 135 94 05/22/20 05:52 POC Glucometer 104 Labs review. Pertinent Admission Physical Exam Findings: Withdrawal symptoms. - Treatment Hospital Course: Detox Protocol Followed, Detoxed Safely, Responded well, Discharged Condition Good - Medication Discharge Medications: Ambulatory Orders Quetiapine Fumarate [Seroquel -] 100 mg PO HS 03/06/20 Sertraline HCl [Zoloft -] 25 mg PO DAILY 05/18/20 traZODone HCL [Trazodone HCl] 100 mg PO HS 05/19/20 Albuterol Sulfate Inhaler - [Ventolin HFA Inhaler -] 2 puff IH Q4H PRN #1 inha ler 05/21/20 Furosemide [Lasix] 20 mg PO DAILY 14 Days #14 tablet 05/21/20 Thiamine HCl [Vitamin B1 -] 100 mg PO HS #14 tablet 05/21/20 metFORMIN HCL [Metformin HCl ER] 500 mg PO DAILY #14 tab.sr 05/21/20 - Diagnosis (1) Alcohol dependence with withdrawal, uncomplicated Current Visit: Yes Status: Acute (2) Opioid dependence with withdrawal Current Visit: Yes Status: Acute (3) Nicotine dependence Current Visit: Yes Status: Chronic Qualifiers: Nicotine product type: cigarettes (4) COPD (chronic obstructive pulmonary disease) Current Visit: No Status: Chronic (5) CHF (congestive heart failure) Current Visit: No Status: Resolved Qualifiers: Heart failure type: diastolic Heart failure chronicity: acute on chronic Qualified Code(s): I50.33 - Acute on chronic diastolic (congestive) heart failure - AMA Did Patient Leave Against Medical Advice: No CIWA Score - CIWA Score Nausea/Vomitin-No Nausea/No Vomiting Muscle Tremors: 1-None Visible, but [place] Anxiety: 1-Mildly Anxious Agitation: 0-Normal Activity Paroxysmal Sweats: No Perspiration Orientation: 0-Oriented Tacttile Disturbances: 0-None Auditory Disturbances: 0-None Visual Disturbances: 0-None Headache: 0-None Present CIWA-Ar Total Score: 2 COWS (PN) - Opiate Withdrawal Resting Pulse: 0= [place] 80 or Below Sweatin= No chills or Flushing Restless Observation: 1= Difficult to Sit Still Pupil Size: 0= Normal to Room Light Bone or Joint Aches: 0= None Runny Nose/ Eye Tearin= None GI Upset > 30mins: 0= None Tremor Observation of Outstretched Hands: 0= None Yawning Observation: 0= None Anxiety or Irritability: 1=Feels Anxious/Irritable Goose Flesh Skin: 0=Smooth Skin COWS Score: 2
[2020-05-22 10:27] VITALS: BP 104/71; PULSE 78; TEMP 98.1
== END 2020-05-22 09:48 | disposition home or self-care (01) | DRG 773 ==
LOC: YASAS 18:55 → Y6N 19:42
PROVIDERS: ADMIT Allergy & Immunology; ATTEND Allergy & Immunology
PROC: HZ2ZZZZ Detoxification Services for Substance Abuse Treatment (ICD-10-PCS; principal; 2020-05-19)
DX: F10.230 Alcohol dependence with withdrawal, uncomplicated (principal); F11.23 Opioid dependence with withdrawal; F17.210 Nicotine dependence, cigarettes, uncomplicated; F19.282 Other psychoactive substance dependence with psychoactive substance-induced sleep disorder; F19.24 Other psychoactive substance dependence with psychoactive substance-induced mood disorder; J44.9 Chronic obstructive pulmonary disease, unspecified; I50.33 Acute on chronic diastolic (congestive) heart failure; J84.10 Pulmonary fibrosis, unspecified; R60.0 Localized edema; Z87.01 Personal history of pneumonia (recurrent); Z86.711 Personal history of pulmonary embolism; Z89.022 Acquired absence of left finger(s); Z91.410 Personal history of adult physical and sexual abuse; Z56.0 Unemployment, unspecified; Z59.0 Homelessness
CPT/HCPCS: 82962; 90732; G0009; J0735